=== PATIENT | female | born 1970 | race Caucasian/White ===

== ENCOUNTER 2017-07-03 01:42 | Emergency (ER) | payer OTHER ==
[~2017-07-03] VITALS: Ht 152.4 cm; Wt 100.4 kg
[2017-07-03 01:52] VITALS: BP 167/91; PULSE 90; RESP 20; TEMP 97.6
[2017-07-03] MEDS ORDERED: LEVO150T7 PO (02:12)
[2017-07-03] MEDS ORDERED: LANTUS2P SQ (02:12)
[2017-07-03] MEDS ORDERED: ASPI81CH7 CHEW (02:12)
[2017-07-03] MEDS ORDERED: NOVOLOGP2 SQ (02:12)
[2017-07-03] MEDS ORDERED: ROSU1TAB6 PO (02:12)
[2017-07-03] MEDS ORDERED: CITA40TA4 PO (02:12)
[2017-07-03] MEDS ORDERED: METF1000 PO (02:12)
[2017-07-03] MEDS ORDERED: PENI500T PO (02:36)
[2017-07-03] MEDS ORDERED: TYLETAB34 PO (02:36)
--- NOTE | 2017-07-03 02:42 | PD ---
HPI Chief Complaint: Oral / Dental Pain or Problem Time Seen by Provider: 02:31 Travel History International Travel<30 days: No Contact w/Intl Traveler<30days: No Traveled to known affect area: No History of Present Illness HPI 46-year-old female presents to the emergency department for complaint of dental pain. Patient states increasing dental pain. History of fractured cusp involving to left maxillary dentition. Patient with previous history of Hodgkin 's disease which has been arrested since 2004 without any ongoing treatment and history of diabetes. Patient states she's made an appointment with her dentist on Tuesday. Patient presents now due to increasing pain. Patient denies other concerns or complaints. No referred pain patient states that she does also have history of migraines and is concerned that the increasing pain is likely to trigger her migraine. Patient denies other concerns or complaints. PFSH Past Medical History Narrative Medical Diabetes hypothyroidism Hodgkin's disease; nursing notes reviewed Hx Anticoagulant Therapy: Yes (baby asa daily) Cancer: Yes (hodgkins lymphoma) Chemotherapy: Yes (2002) Diabetes: Yes Patient Takes Glucophage: Yes Diminished Hearing: No Radiation Therapy: Yes (1998) Tetanus Vaccination: > 5 Years Influenza Vaccination: Yes ?: Not LMP: jun 2017 Past Surgical History Cholecystectomy: Yes (2000) Social History Alcohol Use: No Tobacco Use: No Substance Use: No Allergies-Medications (Allergen,Severity, Reaction): Coded Allergies: prochlorperazine (Verified Allergy, Severe, anaphylaxis, 07/03/17) sulfamethoxazole (Verified Allergy, Severe, nausea, 07/03/17) trimethoprim (Verified Allergy, Severe, nausea, 07/03/17) Reported Meds & Prescriptions Reported Meds & Active Scripts Active Tylenol-Codeine #3 (Acetaminophen-Codeine) 300-30 mg Tab 1 Tab PO Q6HR PRN Penicillin V Potassium 500 Mg Tab 500 Mg PO Q6H 7 Days Reported Lantus Inj (Insulin Glargine) 1,000 Unit/10 Ml Vial 50 Units SQ HS Novolog Inj (Insulin Aspart) 1,000 Unit/10 Ml Vial 15 Units SQ TIDAC Aspirin Children's (Aspirin) 81 Mg Chew 81 Mg CHEW DAILY Rosuvastatin (Rosuvastatin Calcium) 10 Mg Tab 10 Mg PO HS Citalopram (Citalopram Hydrobromide) 40 Mg Tab 40 Mg PO DAILY Levothyroxine (Levothyroxine Sodium) 150 Mcg Tab 150 Mcg PO DAILY Metformin (Metformin HCl) 1,000 Mg Tab 1,000 Mg PO BIDPC With meals Review of Systems Except as stated in HPI: all other systems reviewed are Neg HENT: Positive: Dental Difficulties Physical Exam Narrative GENERAL: Well-developed well-nourished female in no acute distress no respiratory distress SKIN: Warm and dry. HEAD: Normocephalic. EYES: No scleral icterus. No injection or drainage. ENT: Mucous membranes moist airway is patent extensive dental caries and dental disease with cusp injury involving the #11 and 14 dentition gingiva is tender to palpation but no fluctuance NECK: Supple, trachea midline. No JVD or lymphadenopathy. CARDIOVASCULAR: Regular rate and rhythm without murmurs, gallops, or rubs. RESPIRATORY: Breath sounds equal bilaterally. No accessory muscle use. GASTROINTESTINAL: Abdomen soft, non-tender, nondistended. MUSCULOSKELETAL: No cyanosis, or edema. BACK: Nontender without obvious deformity. No CVA tenderness. Data Data Last Documented VS Vital Signs Date Time Temp Pulse Resp B/P (MAP) Pulse Ox O2 Delivery O2 Flow Rate FiO2 07/03/17 01:52 97.6 90 20 167/91 (116) Orders Orders Penicillin V Potassium (Veetids) (07/03/17 02:45) Acetamin-Codeine 300-30 Mg (Tylenol-Code (07/03/17 02:45) MDM Medical Decision Making Medical Screen Exam Complete: Yes Emergency Medical Condition: Yes Medical Record Reviewed: Yes Differential Diagnosis Dentalgia dental abscess apical abscess dental caries gingivitis periodontal disease Narrative Course Patient administered first dose of oral antibiotic and pain medication in the emergency department; patient is otherwise stable for management as an outpatient with her dentist as planned patient encouraged to use ibuprofen 60 mg as often as every 6 hours however may increase her dose 800 mg as often as every 8 hours as tolerated. Patient is encouraged to follow-up with dentist in her primary care provider and return to the emergency department as needed Diagnosis Primary Impression: Dentalgia Additional Impression: Dental disease Referrals: Dentist 2 days Patient Instructions: Narcotic given in the ED Additional Instructions: Keep scheduled appointment with dentist on Tuesday Complete course of antibiotic as prescribed May take ibuprofen 600 mg as often as every 6 hours or up to 800 mg as often as every 8 hours for pain associated with inflammation May use Tylenol/acetaminophen as needed for fever 100.4F or greater Prescription Tylenol 3 contains codeine and may be used for pain greater than 5/ 10 intensity; be aware that narcotic pain medication may impair judgment, delay reaction time, increased risk for fall, cause constipation Return to the emergency department for any concerns or change in condition Med/Other Pt SpecificInfo: Prescription(s) given Scripts Acetaminophen-Codeine (Tylenol-Codeine #3) 300-30 mg Tab 1 TAB PO Q6HR Y for PAIN, #7 TAB 0 Refills Prov: Nicole Owens MD 07/03/17 Penicillin V Potassium (Penicillin V Potassium) 500 Mg Tab 500 MG PO Q6H for Infection for 7 Days, #28 TAB 0 Refills Prov: Nicole Owens MD 07/03/17 Disposition: 01 DISCHARGE HOME Condition: Stable Nicole Owens MD Jul 03, 2017 02:42
[2017-07-03] MEDS ORDERED: ACETAMINOPHEN/CODEINE 300 MG/30 MG TAB PO ONE (02:45)
[2017-07-03] MEDS ORDERED: PENICILLIN V POTASSIUM 500 MG TAB PO ONE (02:45)
[2017-07-03 03:09] VITALS: RESP 18
== END 2017-07-03 03:16 | disposition home or self-care (01) ==
LOC: PHED 01:42 → PHEFT 03:16
DX: K08.89 Other specified disorders of teeth and supporting structures (principal); E03.9 Hypothyroidism, unspecified; E11.9 Type 2 diabetes mellitus without complications; Z85.71 Personal history of Hodgkin lymphoma
CPT/HCPCS: 99284